=== PATIENT | female | born 1980 | race Caucasian/White ===

== ENCOUNTER → 2016-07-16 | Outpatient (CLI) | payer OTHER ==
[~2016-07-16] MED LIST: HYDR-3812 PO; VALA500T PO
--- OUTSIDE RECORDS SUMMARY | 2016-07-16 17:30 | XMS REPORT | Continuity of Care Document ---
Author Author [facility] Organization [facility] Address Unknown Phone Unavailable Care Team Providers Care Complaint Investigator Name Role Phone ANTONI KIRAN DO PCP Insurance Providers Payer Name Policy Number Subscriber Name Relationship Enter Insurance Name [id number] [employer] 18 Self / Same As Patient Advance Directives Directive Response Recorded Date/Time Advance Directives No 11/03/15 4:09pm Organ Donor No 11/03/15 4:09pm Resuscitation Status Full Code 11/03/15 4:09pm Problems Active Problems Medical Problem Onset Date Status Appendicitis Unknown Acute Medications Current Home Medications Medication Dose Units Route Directions Days/Qty Instructions Start Date Valacyclovir Hcl 500 Mg 1 Oral Daily 30 11/03/15 Hydrocodone/Acetaminophen 1 Each 1 Tab Oral Every 4HRS as needed for 30 11/03/15 Social History Social History Problem Response Recorded Date/Time Alcohol Use Denies Use 11/03/2015 2:45pm Recreational Drug Use No 11/03/2015 2:45pm Recent Foreign Travel No 11/03/2015 3:37pm Recent Infectious Disease Exposure No 11/03/2015 2:45pm Hospitalization with Isolation Denies 11/05/2015 2:49pm Smoking Status Never a Smoker 11/03/2015 2:45pm Do you dip or chew tobacco? No 11/03/2015 12:22pm Query Response Start Date Stop Date Smoking Status Never a Smoker Hospital Discharge Instructions Patient Instructions Physician Instructions New, Converted or Re-Newed RX: RX on Chart Plan of Care/Instructions/FU: 2 weeks [place] Activity as Tolerated: No Discharge Diet: Regular Diet Other Inst to Patient Follow up Appt: Make appointment for 2 week. Instructions: No lifting greater than 10 pounds. No strenuous activity. May shower in 24 hours, no tub bath or soaking. Use incentive spirometer at home as directed. No Smoking Skin/Wound Care: May remove bandages. You need to leave the white strips over incision on they will fall off on their own. Symptoms to Report: Appetite Changes, Extremity Discoloration, Numbness/Tingling, Swelling Increased, Bleeding Excessive, Eyesight Changes, Pain Increased, Urine Color Change, Constipation(Persistent), Fever over 101 degree F, Pain/Pressure in chest, Urinating Difficulty, Cough Up/Vomit Blood, Heart Beat Irreg/Pounding, Pain/Pressure in jaw, Vaginal Bleeding Increase, Cramps in feet or legs, Lightheadedness, Pain/Pressure in shoulder, Diarrhea(Persistent), Memory Changes Suddenly, Questions/Concerns, Weight gain consecutive days, Dizziness/Fainting, Nausea/Vomiting, Shortness of Breath, Weight gain over 2 pounds If questions or concerns contact your physician Or seek help at emergency department. Care Plan Patient Instructions:: 2 weeks [place] Plan of Care Discharge Date 11/05/15 4:00pm Instructions/Education Provided Laparoscopic Appendectomy (DC) Prescriptions See Medication Section Functional Status Query Response Date Recorded Patient Orientation Person Place Time Situation November 05, 2015 2:49pm Allergies, Adverse Reactions, Alerts No known allergies. Immunizations No immunization records. Vital Signs Acute Vital Signs Vital Response Date/Time Temperature (Fahrenheit) 96.8 degrees F (97.6 - 99.5) 11/04/2015 11:37am Temperature (Calculated Celsius) 36.43673 degrees C (36.4 - 37.5) 11/04/2015 10:00am Temperature Source Tympanic 11/04/2015 11:37am Pulse Rate (adult) 77 bpm (60 - 90) 11/04/2015 11:37am Respiratory Rate 20 bpm (12 - 24) 11/04/2015 11:37am O2 Sat by Pulse Oximetry 95 % (88 - 100) 11/04/2015 11:37am Blood Pressure 108/62 mm Hg 11/04/2015 11:37am Blood Pressure Mean 77 mm Hg 11/04/2015 10:00am Pain Pain Intensity 3 11/04/2015 11:34am Height (Feet) 5 feet 11/03/2015 3:37pm Height (Inches) 11.00 inches 11/03/2015 3:37pm Height (Calculated Centimeters) 180.054187 cm 11/03/2015 3:37pm Weight (Pounds) 190 pounds 11/03/2015 3:37pm Weight (Ounces) 0.0 oz 11/03/2015 3:37pm Weight (Calculated Grams) 13843.551 gm 11/03/2015 3:37pm Weight (Calculated Kilograms) 86.041289 kilograms 11/03/2015 3:37pm Calculated BMI 26.5 11/03/2015 3:37pm Results Laboratory Results Test Name Result Units Flags Reference Collection Date/Time Result Date/ Time Comments White Blood Count 9.7 10^3/uL 4.3-11.0 11/03/2015 9:50am 11/03/2015 10: 27am Red Blood Count 4.69 10^6/uL 4.35-5.85 11/03/2015 9:50am 11/03/2015 10: 27am Hemoglobin 14.7 G/DL 11.5-16.0 11/03/2015 9:50am 11/03/2015 10:27am Hematocrit 43 % 35-52 11/03/2015 9:50am 11/03/2015 10:27am Mean Corpuscular Volume 91 FL 80-99 11/03/2015 9:50am 11/03/2015 10: 27am Mean Corpuscular Hemoglobin 31 PG 25-34 11/03/2015 9:50am 11/03/2015 10 :27am Mean Corpuscular Hemoglobin Concent 34 G/DL 32-36 11/03/2015 9:50am 08/2015 10:27am Red Cell Distribution Width 12.1 % 10.0-14.5 11/03/2015 9:50am 2015 10:27am Platelet Count 257 10^3/uL 130-400 11/03/2015 9:50am 11/03/2015 10: 27am Mean Platelet Volume 10.2 FL 7.4-10.4 11/03/2015 9:50am 11/03/2015 10: 27am Neutrophils (%) (Auto) 68 % 42-75 11/03/2015 9:50am 11/03/2015 10:27am Lymphocytes (%) (Auto) 24 % 12-44 11/03/2015 9:50am 11/03/2015 10:27am Monocytes (%) (Auto) 8 % 0-12 11/03/2015 9:50am 11/03/2015 10:27am Eosinophils (%) (Auto) 0 % 0-10 11/03/2015 9:50am 11/03/2015 10:27am Basophils (%) (Auto) 0 % 0-10 11/03/2015 9:50am 11/03/2015 10:27am Neutrophils # (Auto) 6.6 X 10^3 1.8-7.8 11/03/2015 9:50am 11/03/2015 10 :27am Lymphocytes # (Auto) 2.3 X 10^3 1.0-4.0 11/03/2015 9:50am 11/03/2015 10 :27am Monocytes # (Auto) 0.7 X 10^3 0.0-1.0 11/03/2015 9:50am 11/03/2015 10: 27am Eosinophils # (Auto) 0.0 10^3/uL 0.0-0.3 11/03/2015 9:50am 11/03/2015 10:27am Basophils # (Auto) 0.0 10^3/uL 0.0-0.1 11/03/2015 9:50am 11/03/2015 10: 27am Urine Color YELLOW 11/03/2015 9:30am 11/03/2015 10:06am Urine Clarity CLEAR 11/03/2015 9:30am 11/03/2015 10:06am Urine pH 8 5-9 11/03/2015 9:3011/03/2015 10:06am Urine Specific [place] 1.010 * 1.016-1.022 11/03/2015 9:30am 2015 10:06am Urine Protein NEGATIVE NEGATIVE 11/03/2015 9:30am 11/03/2015 10:06am Urine Glucose (UA) NEGATIVE NEGATIVE 11/03/2015 9:3011/03/2015 10: 06am Urine RBC (Auto) NEGATIVE NEGATIVE 11/03/2015 9:30am 11/03/2015 10: 06am Urine Ketones NEGATIVE NEGATIVE 11/03/2015 9:30am 11/03/2015 10:06am Urine Nitrite NEGATIVE NEGATIVE 11/03/2015 9:30am 11/03/2015 10:06am Urine Bilirubin NEGATIVE NEGATIVE 11/03/2015 9:30am 11/03/2015 10: 06am Urine Urobilinogen NORMAL MG/DL NORMAL 11/03/2015 9:30am 11/03/2015 10: 06am Urine Leukocyte Esterase NEGATIVE NEGATIVE 11/03/2015 9:30am 2015 10:06am Urine RBC NONE /HPF 11/03/2015 9:30am 11/03/2015 10:06am Urine WBC NONE /HPF 11/03/2015 9:30am 11/03/2015 10:06am Urine Bacteria TRACE /HPF 11/03/2015 9:30am 11/03/2015 10:06am Urine Squamous Epithelial Cells RARE /HPF 11/03/2015 9:30am 2015 10:06am Urine Crystals NONE /LPF 11/03/2015 9:30am 11/03/2015 10:06am Urine Casts NONE /LPF 11/03/2015 9:30am 11/03/2015 10:06am Urine Mucus NEGATIVE /LPF 11/03/2015 9:30am 11/03/2015 10:06am Urine Culture Indicated NO 11/03/2015 9:30am 11/03/2015 10:06am Sodium Level 139 MMOL/L 135-145 11/03/2015 9:50am 11/03/2015 10:25am Potassium Level 3.5 MMOL/L L 3.6-5.0 11/03/2015 9:50am 11/03/2015 10: 25am Chloride Level 103 MMOL/L 98-107 11/03/2015 9:50am 11/03/2015 10:25am Carbon Dioxide Level 25 MMOL/L 21-32 11/03/2015 9:50am 11/03/2015 10: 25am Anion Gap 11 MMOL/L 5-14 11/03/2015 9:50am 11/03/2015 10:25am Blood Urea Nitrogen 9 MG/DL 7-18 11/03/2015 9:50am 11/03/2015 10:25am Creatinine 0.74 MG/DL 0.60-1.30 11/03/2015 9:50am 11/03/2015 10:25am BUN/Creatinine Ratio 12 11/03/2015 9:50am 11/03/2015 10:25am Estimat Glomerular Filtration Rate > 60 11/03/2015 9:50am 2015 10:25am GFR INTERPRETIVE DATA UNITS FOR ESTIMATED GFR (eGFR): mL/min/1.73 M2 REFERENCE RANGE FOR ESTIMATED GFR (eGFR) eGFR NORMAL eGFR >60 MODERATELY DECREASED eGFR 30-59 SEVERLY DECREASED eGFR 15-29 KIDNEY FAILURE <15 (OR DIALYSIS) Glucose Level 83 MG/DL 70-105 11/03/2015 9:50am 11/03/2015 10:25am Calcium Level 9.1 MG/DL 8.5-10.1 11/03/2015 9:50am 11/03/2015 10:25am Total Bilirubin 0.9 MG/DL 0.1-1.0 11/03/2015 9:50am 11/03/2015 10:25am Alkaline Phosphatase 93 U/L 40-136 11/03/2015 9:50am 11/03/2015 10: 25am Aspartate Amino Transf (AST/SGOT) 24 U/L 5-34 11/03/2015 9:50am 2015 10:25am Alanine Aminotransferase (ALT/SGPT) 9 U/L 0-55 11/03/2015 9:50am 2015 10:25am Total Protein 7.3 G/DL 6.4-8.2 11/03/2015 9:50am 11/03/2015 10:25am Albumin 4.5 G/DL 3.2-4.5 11/03/2015 9:50am 11/03/2015 10:25am Amylase Level 51 U/L 25-125 11/03/2015 9:50am 11/03/2015 10:25am Lipase 19 U/L 8-78 11/03/2015 9:50am 11/03/2015 10:25am Microbiology Results Procedure Source Result Collection Date/Time Result Date/Time MRSA Screen Nasal MRSA not isolated 11/03/2015 11:40am 11/04/2015 2:33pm Procedures Procedure Status Date Provider(s) Laparoscopic appendectomy Completed 11/03/15 JD JAIMES DO Encounters Encounter Location Arrival/Admit Date Discharge/Depart Date Attending Provider Departed [facility] 11/03/15 12:15pm 11/05/15 4:00pm JD JAIMES DO Recent Diagnosis Appendicitis
--- NOTE | 2016-07-16 17:58 | Diagnostic Imaging Report ---
PROCEDURE: US Thyroid. TECHNIQUE: Multiple real-time grayscale images were obtained of the thyroid in various projections. INDICATION: Family history of thyroid cancer COMPARISON: None available FINDINGS: The thyroid gland is within normal limits in size. It maintains a homogeneous echotexture. No discrete cystic or solid nodule is identified. IMPRESSION: Unremarkable examination. No thyroid nodule seen. Dictated by: Dictated on workstation # [id number]
== END ==
LOC: RAD 17:27
PROVIDERS: ATTEND Family Medicine
DX: Z80.8 Family history of malignant neoplasm of other organs or systems (principal)
CPT/HCPCS: 76536

== ENCOUNTER 2020-08-03 11:15 | Observation (INO) | payer OTHER ==
[2020-08-03] VITALS (10 sets, daily range): BP systolic 92–116; BP diastolic 49–82
[~2020-08-03] VITALS: Ht 177 cm; Wt 95.0 kg
[~2020-08-03 11:15] MED LIST changes: +ACHD5005 PO; -HYDR-3812 PO; -VALA500T PO; +VALA500T7 PO
[2020-08-03 11:54] LABS: BILIRUBIN,URINE NEGATIVE (NEGATIVE); CLARITY,URINE CLEAR; COLOR,URINE YELLOW; GLUCOSE, URINE (UA) NEGATIVE (NEGATIVE); KETONES,URINE NEGATIVE (NEGATIVE); LEUKOCYTE ESTERASE ,URINE NEGATIVE (NEGATIVE); NITRITE,URINE NEGATIVE (NEGATIVE); PH,URINE 5.5 (5-9); PROTEIN,URINE NEGATIVE (NEGATIVE)
[2020-08-03 12:01] LABS: BACTERIA,URINE NEGATIVE /HPF
[2020-08-03 12:13] LABS: BASOPHILS % (AUTO) 0 % (0-10); EOSINOPHILS # (AUTO) 0.1 10^3/uL (0.0-0.3); EOSINOPHILS % (AUTO) 1 % (0-10); HEMATOCRIT 31 % (35-52); HEMOGLOBIN 10.1 g/dL (11.5-16.0); LYMPHOCYTES # (AUTO) 1.9 10^3/uL (1.0-4.0); LYMPHOCYTES % (AUTO) 21 % (12-44); MEAN CORPUSCULAR HEMOGLOBIN 31 pg (25-34); MEAN CORPUSCULAR HGB CONC 33 g/dL (32-36); MEAN CORPUSCULAR VOLUME 94 fL (80-99); MEAN PLATELET VOLUME 9.2 fL (9.0-12.2); MONOCYTES # (AUTO) 0.5 10^3/uL (0.0-1.0); MONOCYTES % (AUTO) 6 % (0-12); NEUTROPHILS # (AUTO) 6.5 10^3/uL (1.8-7.8); NEUTROPHILS % (AUTO) 72 % (42-75); PLATELET COUNT 239 10^3/uL (130-400)
[2020-08-03 12:25] LABS: ALBUMIN 3.7 GM/DL (3.2-4.5); CHLORIDE 104 MMOL/L (98-107); POTASSIUM 3.4 MMOL/L (3.6-5.0); SODIUM 135 MMOL/L (135-145)
[2020-08-03 12:27] LABS: CALCIUM 7.9 MG/DL (8.5-10.1)
[2020-08-03 12:28] LABS: GLUCOSE 99 MG/DL (70-105); TOTAL PROTEIN 6.2 GM/DL (6.4-8.2)
[2020-08-03 12:29] LABS: CARBON DIOXIDE 22 MMOL/L (21-32)
[2020-08-03 12:30] LABS: BILIRUBIN,TOTAL 0.3 MG/DL (0.1-1.0)
[2020-08-03 12:31] LABS: ALKALINE PHOSPHATASE 50 U/L (40-136); CREATININE SERUM 0.68 MG/DL (0.60-1.30); GFR ESTIMATED > 60
[2020-08-03 12:32] LABS: BUN/CREATININE RATIO 12
[2020-08-03 12:34] LABS: ALANINE AMINOTRANSFERASE 10 U/L (0-55)
[2020-08-03 13:25] LABS: AMYLASE 38 U/L (25-125)
--- NOTE | 2020-08-03 13:28 | ED Abdominal Pain ---
General Chief Complaint: Abdominal/GI Problems Stated Complaint: ABD PAIN Nursing Triage Note: ARRIVED VIA AMB TO TRIAGE WITH COMPLAINTS OF UMBILICAL PAIN STARTING ON THURSDAY. STATES IT IS HARD FOR HER TO PEE. Sepsis Screen: No Definite Risk Source of Information: Patient Exam Limitations: No Limitations History of Present Illness Date Seen by Provider: Aug 03, 2020 Time Seen by Provider: 13:28 Initial Comments To ER with periumbilical abdominal pain. It began Thursday and she thought she was having her menstrual period. Her last menstrual cycle previous to this was June 25. She is G3, P2 Ab1. Typically she follows with Dr. Eason in [place]. Over the course of the week the pain has progressed. She rates it at 7 out of 10 while resting. She also has some right shoulder pain. No nausea or vomiting. No history of tubal ligation. Does not use any form of control. Timing/Duration: 1 Week Severity/Quality: Moderate Radiation: No Radiation Activities at Onset: None Allergies and Home Medications Allergies Coded Allergies: No Known Drug Allergies (Unverified , 11/03/15) Home Medications Hydrocodone Bit/Acetaminophen 1 Each Tablet, 1 TAB PO Q4H PRN Prescribed by: JD JAIMES on 11/03/15 1325 Valacyclovir HCl 500 Mg Tablet, 1 PO DAILY, (Reported) Patient Home Medication List Home Medication List Reviewed: Yes Review of Systems Review of Systems Constitutional: see HPI EENTM: No Symptoms Reported Respiratory: No Symptoms Reported Cardiovascular: No Symptoms Reported Gastrointestinal: See HPI, Abdominal Pain Genitourinary: No Symptoms Reported Musculoskeletal: no symptoms reported Skin: no symptoms reported Psychiatric/Neurological: No Symptoms Reported Endocrine: No Symptoms Reported Past Eytaqui-Nwxphm-Kohntm Hx Patient Social History 2nd Hand Smoke Exposure: No Recent Infectious Disease Expo: No Seasonal Allergies Seasonal Allergies: No Past Medical History Surgeries: No Respiratory: No Cardiac: No Neurological: No Reproductive Disorders: No Female Reproductive Disorders: Denies Gastrointestinal: No Musculoskeletal: No Endocrine: No Cancer: No Psychosocial: No Integumentary: No Blood Disorders: No Adverse Reaction/Blood Tranf: No Physical Exam Vital Signs Vital Signs - First Documented 08/03/20 11:30 Temp 36.7 Pulse 109 Resp 18 B/P (MAP) 117/81 (93) Pulse Ox 99 O2 Delivery Room Air Capillary Refill : Less Than 3 Seconds Height/Weight/BMI Height: 5'11.00" Weight: 190lbs. 0.0oz. 86.044847io; 30.00 BMI Method:Stated General Appearance: WD/WN, no apparent distress HEENT: PERRL/EOMI, normal ENT inspection Respiratory: no respiratory distress, no accessory muscle use Gastrointestinal: normal bowel sounds, soft, tenderness (Tender to palpation but the pain is tolerable at rest.) Extremities: normal range of motion, non-tender Neurologic/Psychiatric: alert, normal mood/affect, oriented x 3 Skin: normal color, warm/dry Progress/Results/Core Measures Results/Orders Lab Results Laboratory Tests Test 08/03/20 11:35 08/03/20 12:00 Range/Units Urine Color YELLOW Urine Clarity CLEAR Urine pH 5.5 5-9 Urine Specific [place] 1.020 1.016-1.022 Urine Protein NEGATIVE NEGATIVE Urine Glucose (UA) NEGATIVE NEGATIVE Urine Ketones NEGATIVE NEGATIVE Urine Nitrite NEGATIVE NEGATIVE Urine Bilirubin NEGATIVE NEGATIVE Urine Urobilinogen 0.2 < = 1.0 MG/DL Urine Leukocyte Esterase NEGATIVE NEGATIVE Urine RBC (Auto) 3+ H NEGATIVE Urine RBC 10-25 H /HPF Urine WBC NONE /HPF Urine Squamous Epithelial Cells 2-5 /HPF Urine Crystals NONE /LPF Urine Bacteria NEGATIVE /HPF Urine Casts NONE /LPF Urine Mucus NEGATIVE /LPF Urine Culture Indicated NO White Blood Count 9.0 4.3-11.0 10^3/uL Red Blood Count 3.27 L 3.80-5.11 10^6/uL Hemoglobin 10.1 L 11.5-16.0 g/dL Hematocrit 31 L 35-52 % Mean Corpuscular Volume 94 80-99 fL Mean Corpuscular Hemoglobin 31 25-34 pg Mean Corpuscular Hemoglobin Concent 33 32-36 g/dL Red Cell Distribution Width 11.8 10.0-14.5 % Platelet Count 239 130-400 10^3/uL Mean Platelet Volume 9.2 9.0-12.2 fL Immature Granulocyte % (Auto) 0 % Neutrophils (%) (Auto) 72 42-75 % Lymphocytes (%) (Auto) 21 12-44 % Monocytes (%) (Auto) 6 0-12 % Eosinophils (%) (Auto) 1 0-10 % Basophils (%) (Auto) 0 0-10 % Neutrophils # (Auto) 6.5 1.8-7.8 10^3/uL Lymphocytes # (Auto) 1.9 1.0-4.0 10^3/uL Monocytes # (Auto) 0.5 0.0-1.0 10^3/uL Eosinophils # (Auto) 0.1 0.0-0.3 10^3/uL Basophils # (Auto) 0.0 0.0-0.1 10^3/uL Immature Granulocyte # (Auto) 0.0 0.0-0.1 10^3/uL Sodium Level 135 135-145 MMOL/L Potassium Level 3.4 L 3.6-5.0 MMOL/L Chloride Level 104 98-107 MMOL/L Carbon Dioxide Level 22 21-32 MMOL/L Anion Gap 9 5-14 MMOL/L Blood Urea Nitrogen 8 7-18 MG/DL Creatinine 0.68 0.60-1.30 MG/DL Estimat Glomerular Filtration Rate > 60 BUN/Creatinine Ratio 12 Glucose Level 99 70-105 MG/DL Calcium Level 7.9 L 8.5-10.1 MG/DL Corrected Calcium 8.1 L 8.5-10.1 MG/DL Total Bilirubin 0.3 0.1-1.0 MG/DL Aspartate Amino Transf (AST/SGOT) 19 5-34 U/L Alanine Aminotransferase (ALT/SGPT) 10 0-55 U/L Alkaline Phosphatase 50 40-136 U/L Total Protein 6.2 L 6.4-8.2 GM/DL Albumin 3.7 3.2-4.5 GM/DL Amylase Level 38 25-125 U/L Lipase 12 8-78 U/L Human Chorionic Gonadotropin, Quant 555 H <5 MIU/ML My Orders Orders - KELLIE [employer] Us Ob<14 Wks Sngle W/Transvag (08/03/20 13:10) Vital Signs/I&O 08/03/20 11:30 Temp 36.7 Pulse 109 Resp 18 B/P (MAP) 117/81 (93) Pulse Ox 99 O2 Delivery Room Air Blood Pressure Mean: 93 Departure Communication (Admissions) She is hemodynamically stable. Pain is a 7 I will order some fentanyl. I spoke with Dr. Herrmann. We will admit the patient up to women services. Differential includes very early with ruptured corpus luteum cyst versus ruptured ectopic. Impression Primary Impression: Hemoperitoneum Additional Impression: Positive test Disposition: ADMITTED INPATIENT Condition: Stable Admissions Decision to Admit Reason: Admit from ER (General) Decision to Admit/Date: Aug 03, 2020 Departure-Patient Inst. Referrals: ANTONI KIRAN DO (PCP/Family) Primary Care Physician Copy Copies To 1: ANTONI KIRAN PETER J APRN Aug 03, 2020 13:28
[2020-08-03 13:34] LABS: LIPASE 12 U/L (8-78)
--- NOTE | 2020-08-03 14:27 | Diagnostic Imaging Report ---
Indication: Positive test and abdominal pain. The uterus measures 8.2 x 4.0 x 6.2 cm. Endometrium is approximately 18 mm in thickness. Endometrium is heterogeneous. No definite intrauterine is seen. No definite myometrial mass is detected. Ovaries are not visualized. There is an area of heterogeneity posterior to the uterus measuring 8.0 x 3.3 x 9.0 cm. There is also large amount of free fluid present. This area of heterogeneity may represent organized blood products. No other abnormalities are seen. IMPRESSION: 1. No intrauterine is identified. There is thickening and heterogeneity to the endometrium. 2. Masslike echogenicity posterior to uterus surrounded by a large amount of free pelvic fluid. This could represent organized blood products. Hemoperitoneum cannot be excluded. In light of a positive test the possibility of an ectopic with hemoperitoneum cannot be entirely excluded although a discrete adnexal mass is not identified. Dictated by: Dictated on workstation # [id number]
[2020-08-03] MEDS ORDERED: fentaNYL INJECTION 100 MCG/2 ML AMP IVP ONE (15:30)
[2020-08-03] MEDS: LACTATED RINGERS 1,000 ML IV SCH ×2 (15:33→17:32)
--- NOTE | 2020-08-03 17:24 | History & Physical ---
History and Physical Date Seen by Provider: Aug 03, 2020 Time Seen by Provider: 17:16 This patient is a 39-year-old 3 para 2 A1 white female who presented to the emergency department today with increasing abdominal and pelvic pain since Thursday. She reports having vague but progressive pain on Thursday that reached the point today where it is intolerable. She has had some vaginal spotting or bleeding. By her history she would have ovulated about 2 weeks ago. She denies any bowel or bladder complaints plaints or issues other than having some difficulty voiding a couple times this week. Patient denies nausea and denies mastalgia. The patient is on medication for anxiety and depression Evaluation in the emergency department showed a complex cystic mass posterior and to one side of her uterus suspicious for a ruptured cyst versus ectopic versus other etiology. The endometrial stripe was fairly markedly thickened on the ultrasound as well. There was extensive free fluid in the pelvis as well Patient's abdominal and pelvic pain have significantly increased since admission . She has had a dose of fentanyl at 50 mg at only minimally improved her pain. 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 Past surgical history includes procedures for IVF/a D&C for failed /appendectomy Past OB history includes 2 spontaneous pregnancies resulted in live births vaginally and one by IVF which required a D&C for an abnormal Social history the patient is she denies tobacco drug or alcohol use she has no history of STDs Family history is noncontributory Lab work is as follows Laboratory Tests Test 08/03/20 11:35 08/03/20 12:00 Range/Units Urine Color YELLOW Urine Clarity CLEAR Urine pH 5.5 5-9 Urine Specific [place] 1.020 1.016-1.022 Urine Protein NEGATIVE NEGATIVE Urine Glucose (UA) NEGATIVE NEGATIVE Urine Ketones NEGATIVE NEGATIVE Urine Nitrite NEGATIVE NEGATIVE Urine Bilirubin NEGATIVE NEGATIVE Urine Urobilinogen 0.2 < = 1.0 MG/DL Urine Leukocyte Esterase NEGATIVE NEGATIVE Urine RBC (Auto) 3+ H NEGATIVE Urine RBC 10-25 H /HPF Urine WBC NONE /HPF Urine Squamous Epithelial Cells 2-5 /HPF Urine Crystals NONE /LPF Urine Bacteria NEGATIVE /HPF Urine Casts NONE /LPF Urine Mucus NEGATIVE /LPF Urine Culture Indicated NO White Blood Count 9.0 4.3-11.0 10^3/uL Red Blood Count 3.27 L 3.80-5.11 10^6/uL Hemoglobin 10.1 L 11.5-16.0 g/dL Hematocrit 31 L 35-52 % Mean Corpuscular Volume 94 80-99 fL Mean Corpuscular Hemoglobin 31 25-34 pg Mean Corpuscular Hemoglobin Concent 33 32-36 g/dL Red Cell Distribution Width 11.8 10.0-14.5 % Platelet Count 239 130-400 10^3/uL Mean Platelet Volume 9.2 9.0-12.2 fL Immature Granulocyte % (Auto) 0 % Neutrophils (%) (Auto) 72 42-75 % Lymphocytes (%) (Auto) 21 12-44 % Monocytes (%) (Auto) 6 0-12 % Eosinophils (%) (Auto) 1 0-10 % Basophils (%) (Auto) 0 0-10 % Neutrophils # (Auto) 6.5 1.8-7.8 10^3/uL Lymphocytes # (Auto) 1.9 1.0-4.0 10^3/uL Monocytes # (Auto) 0.5 0.0-1.0 10^3/uL Eosinophils # (Auto) 0.1 0.0-0.3 10^3/uL Basophils # (Auto) 0.0 0.0-0.1 10^3/uL Immature Granulocyte # (Auto) 0.0 0.0-0.1 10^3/uL Sodium Level 135 135-145 MMOL/L Potassium Level 3.4 L 3.6-5.0 MMOL/L Chloride Level 104 98-107 MMOL/L Carbon Dioxide Level 22 21-32 MMOL/L Anion Gap 9 5-14 MMOL/L Blood Urea Nitrogen 8 7-18 MG/DL Creatinine 0.68 0.60-1.30 MG/DL Estimat Glomerular Filtration Rate > 60 BUN/Creatinine Ratio 12 Glucose Level 99 70-105 MG/DL Calcium Level 7.9 L 8.5-10.1 MG/DL Corrected Calcium 8.1 L 8.5-10.1 MG/DL Total Bilirubin 0.3 0.1-1.0 MG/DL Aspartate Amino Transf (AST/SGOT) 19 5-34 U/L Alanine Aminotransferase (ALT/SGPT) 10 0-55 U/L Alkaline Phosphatase 50 40-136 U/L Total Protein 6.2 L 6.4-8.2 GM/DL Albumin 3.7 3.2-4.5 GM/DL Amylase Level 38 25-125 U/L Lipase 12 8-78 U/L Human Chorionic Gonadotropin, Quant 555 H <5 MIU/ML Ultrasound results per verbal report from the emergency room physician showed a markedly thickened endometrial stripe, extensive surrounding free fluid and pelvic free fluid, a cystic mass posterior and lateral to the, no discrete intrauterine [place], [place] NAME: [facility] REC#: [id number] PT STATUS: ADM Guillermina : 1980 PHYSICIAN: KELLIE APARICIO APRN ADMIT DATE: 08/03/20/WS Signed Date of Exam:08/03/20 US OB<14 WKS SNGLE W/TRANSVAG Indication: Positive test and abdominal pain. The uterus measures 8.2 x 4.0 x 6.2 cm. Endometrium is approximately 18 mm in thickness. Endometrium is heterogeneous. No definite intrauterine is seen. No definite myometrial mass is detected. Ovaries are not visualized. There is an area of heterogeneity posterior to the uterus measuring 8.0 x 3.3 x 9.0 cm. There is also large amount of free fluid present. This area of heterogeneity may represent organized blood products. No other abnormalities are seen. IMPRESSION: 1. No intrauterine is identified. There is thickening and heterogeneity to the endometrium. 2. Masslike echogenicity posterior to uterus surrounded by a large amount of free pelvic fluid. This could represent organized blood products. Hemoperitoneum cannot be excluded. In light of a positive test the possibility of an ectopic with hemoperitoneum cannot be entirely excluded although a discrete adnexal mass is not identified. Dictated by: Dictated on workstation # [id number] Dict: 08/03/20 1420 Trans: 08/03/20 1555 [facility] [id number] Interpreted by: GENESIS MELARA MD Electronically signed by: GENESIS MELARA MD 08/03/20 155 HEENT exam is normal Neck is supple no lymphadenopathy no thyromegaly Abdomen is soft. Markedly tender on palpation there is no significant rebound but there is voluntary guarding and some rigidity Extremities show no clubbing or cyanosis. There is no Homans' sign. There is no psoas sign and there is no obturator sign Pelvic exam is deferred to the operating room Assessment and plan severe pelvic pain with now progression to an acute abdomen. The physical exam the presentation the ultrasound findings are concerning for a ruptured ectopic but in the differential diagnosis would include a ruptured hemorrhagic corpus luteal cyst that at this point would warrant surgical evaluation due to the patient pain into the extensive amount of free fluid shown on on the ultrasound. I have discussed management options with the patient including observation versus proceeding to laparoscopically evaluation the patient specifically is requesting something definitive at this point as she feels she can no longer tolerate the pain. Toward that end we discussed laparoscopic evaluation with treatment for either ruptured ectopic or ovarian cyst or hemorrhagic corpus luteal cyst with means and measures to try to protect an intrauterine at that should be the case. The patient has a full understanding of the surgical risk complications recovery and follow-up and agrees with those risk and asked that we proceed Acute abdomen possible ruptured ectopic versus hemorrhagic corpus luteal cyst rupture Allergies and Home Medications Allergies Coded Allergies: No Known Drug Allergies (Unverified , 11/03/15) Home Medications Hydrocodone Bit/Acetaminophen 1 Each Tablet, 1 TAB PO Q4H PRN Prescribed by: JD JAIMES on 11/03/15 1325 Valacyclovir HCl 500 Mg Tablet, 1 PO DAILY, (Reported) Patient Home Medication List Home Medication List Reviewed: Yes KYUNG TRINH MD Aug 03, 2020 17:24
[2020-08-03] MEDS ORDERED: ONDANSETRON 4 MG/2 ML (SDV) Z0FRAN IVP PRN ×2 (17:30→20:00)
[2020-08-03] MEDS ORDERED: D5 LR IV SOLUTION 1,000 ML IV SCH ×2 (17:30)
[2020-08-03] MEDS ORDERED: fentaNYL INJECTION 100 MCG/2 ML AMP IVP PRN (17:30)
[2020-08-03] MEDS ORDERED: oxyCODONE/APAP 5/325MG (PERCOCET 5) TABLET PO PRN (17:30)
[2020-08-03] MEDS ORDERED: ceFAZolin INJECTION 1,000 MG in WATER (STERILE) FOR INJECTION 10 ML IV NR (17:30)
[2020-08-03] MEDS ORDERED: OXYC1TAB87 PO (17:33)
[2020-08-03] MEDS ORDERED: DOCU-143 PO (17:33)
[2020-08-03] MEDS ORDERED: IBUP-1780 PO (17:33)
[2020-08-03] MEDS ORDERED: LIDOCAINE PF 2% 5 ML (XYLOCAINE) VIAL ONE (17:35)
[2020-08-03] MEDS ORDERED: fentaNYL INJECTION 100 MCG/2 ML AMP ONE (17:35)
[2020-08-03] MEDS ORDERED: proPOfol 200 MG/20 ML (DIPRIVAN) VIAL IV ONE (17:35)
--- NOTE | 2020-08-03 17:35 | Discharge Inst-Surgical ---
Discharge Inst-Surgical Depart Medication/Instructions New, Converted or Re-Newed RX: RX on Chart Consults/Follow Up Patient Instructions: As directed Orders & Referrals Follow Up Appt: RTC Next Thursday, August 10, 2020 at 9:30 AM for suture removal And as needed increasing pain or abnormal vaginal bleeding Activity: Rest for 24 hours, than as tolerated. Wound Care: May remove Band-Aid tomorrow. Replace as desired. Keep incisions clean and dry. Wash daily with soap and water. Please call in RX to patient pharmacy. Diet: As tolerated May shower or tub bathe as desired. No driving for 24 hours, no alcoholic beverages for 24 hours, and nothing per vagina (no tampons, douching, or intercourse) for 2 weeks. Patient to return to the clinic as soon as possible for: Temperature greater than 101F, Severe Pain, Foul discharge from incision or vagina, Excessive Bleeding (more than a period). Activity Activity as Tolerated: No Diet Discharge Diet: No Restrictions KYUNG TRINH MD Aug 03, 2020 17:35
[2020-08-03] MEDS ORDERED: CATHETER FLUSH 10 ML SYR IV PRN (17:45)
[2020-08-03] MEDS ORDERED: ONDANSETRON 4 MG/2 ML (SDV) Z0FRAN ONE (17:46)
[2020-08-03] MEDS ORDERED: SEVOFLURANE (ULTANE) 15 ML INHAL SOLN ONE ×2 (17:46→19:21)
[2020-08-03] MEDS ORDERED: LIDOCAINE/EPI 1%-1:100,000 (XYLOCAINE) 50 ML ONE (17:53)
[2020-08-03] MEDS ORDERED: LACTATED RINGERS 1,000 ML IV PRN (18:00)
[2020-08-03] MEDS ORDERED: HYDROmorphone 2 MG/ML VIAL (DILAUDID) ONE (19:03)
[2020-08-03] MEDS ORDERED: MEPERIDINE (DEMEROL) INJ 50 MG/ML ONE ×2 (19:03→19:36)
[2020-08-03] MEDS ORDERED: morphine INJ 10 MG/ML 1ML (SYR OR VIAL) ONE (19:04)
[2020-08-03] MEDS ORDERED: PROMETHAZINE INJ 25 MG/ML (PHENERGAN) AMP ONE (19:04)
[2020-08-03] MEDS ORDERED: KETOROLAC 30 MG/ML VIAL ONE (19:09)
[2020-08-03] MEDS ORDERED: PHENYLEPHRINE 100 MCG/ML 10 ML (ANESTHESIA) SYR ONE (19:09)
[2020-08-03] MEDS ORDERED: ROCURONIUM 10 MG/ML 5 ML SYRINGE IV ONE (19:10)
[2020-08-03] MEDS ORDERED: NEOSTIGMINE 3 MG/3 ML VIAL ONE (19:13)
[2020-08-03] MEDS ORDERED: GLYCOPYRROLATE 0.2 MG/ML (ROBINUL) 2 ML VIAL ONE (19:13)
[2020-08-03] MEDS: KETOROLAC 30 MG/ML VIAL IVP NR (19:15)
[2020-08-03] MEDS ORDERED: MEPERIDINE (DEMEROL) INJ 50 MG/ML IVP ONE (20:00)
[2020-08-03] MEDS ORDERED: HYDROmorphone 2 MG/ML VIAL (DILAUDID) IV ONE (20:00)
[2020-08-03] MEDS ORDERED: PROMETHAZINE INJ 25 MG/ML (PHENERGAN) AMP IVP ONE (20:00)
[2020-08-03] MEDS ORDERED: morphine INJ 10 MG/ML 1ML (SYR OR VIAL) IVP ONE (20:00)
[2020-08-04] MEDS ORDERED: KETOROLAC 30 MG/ML VIAL ONE (02:00)
[2020-08-04] MEDS: KETOROLAC 30 MG/ML VIAL IVP NR (02:10)
[2020-08-04 05:00] VITALS: BP 89/53
[2020-08-04] MEDS ORDERED: IBUPROFEN 800 MG (MOTRIN) TAB PO SCH (08:00)
[2020-08-04] MEDS ORDERED: IBUPROFEN 800 MG (MOTRIN) TAB PO ONE (08:14)
[2020-08-04 08:22] VITALS: BP 98/55
--- NOTE | 2020-08-04 08:54 | Progress Note ---
Standard Progress Note Progress Notes/Assess & Plan Date Seen by a Provider: Aug 04, 2020 Time Seen by a Provider: 08:52 Progress/Assessment & Plan This patient is without complaint. She is ambulating, voiding, tolerating oral intake well has good pain control. Vital Signs Date Time Temp Pulse Resp B/P (MAP) Pulse Ox O2 Delivery O2 Flow Rate FiO2 08/04/20 08:22 36.6 87 18 98/55 (69) 100 Room Air 08/04/20 05:00 36.8 96 18 89/53 (65) 97 Room Air 08/03/20 23:56 37.0 91 18 105/54 (71) 97 Room Air 08/03/20 20:35 Room Air 08/03/20 20:35 36.3 20 101/55 (70) 100 Room Air 08/03/20 20:35 36.4 76 18 116/60 (78) 97 Room Air 08/03/20 20:30 Room Air 08/03/20 20:20 20 101/52 (68) 100 Room Air 08/03/20 20:15 Room Air 08/03/20 20:10 20 102/49 (66) 100 Room Air 08/03/20 20:00 Room Air 08/03/20 20:00 20 106/52 (70) 100 Room Air 08/03/20 19:50 20 111/67 (82) 100 OxyMask 3 08/03/20 19:45 OxyMask 6 08/03/20 19:40 36.3 20 92/58 (69) 100 OxyMask 6 08/03/20 19:37 OxyMask 6 08/03/20 19:37 36.3 20 110/82 (91) 100 OxyMask 6 08/03/20 17:15 37.0 90 18 110/71 (84) 100 Room Air 08/03/20 16:22 87 17 138/94 100 Room Air 08/03/20 11:30 36.7 109 18 117/81 (93) 99 Room Air I & O 08/04/20 07:00 Intake Total 1010 ml Output Total 1100 ml Balance -90 ml Vital signs are stable. Patient is afebrile. The abdomen is benign. The surgical incision dressings are clean and dry. Extremities show no clubbing or cyanosis. There is no Homans' sign. Pelvic exam is deferred Assessment and plan postoperative day #1 status post right salpingectomy for ruptured ectopic . Plan is for discharge home with follow-up in clinic Final Diagnosis Ruptured right fallopian tube ectopic KYUNG TRINH MD Aug 04, 2020 08:53
--- NOTE | 2020-08-04 08:55 | Progress Note ---
Standard Progress Note Progress Notes/Assess & Plan Date Seen by a Provider: Aug 04, 2020 Time Seen by a Provider: 08:54 Progress/Assessment & Plan This patient is without complaint. She is ambulating, voiding, tolerating oral intake well has good pain control. Vital Signs Date Time Temp Pulse Resp B/P (MAP) Pulse Ox O2 Delivery O2 Flow Rate FiO2 08/04/20 08:22 36.6 87 18 98/55 (69) 100 Room Air 08/04/20 05:00 36.8 96 18 89/53 (65) 97 Room Air 08/03/20 23:56 37.0 91 18 105/54 (71) 97 Room Air 08/03/20 20:35 Room Air 08/03/20 20:35 36.3 20 101/55 (70) 100 Room Air 08/03/20 20:35 36.4 76 18 116/60 (78) 97 Room Air 08/03/20 20:30 Room Air 08/03/20 20:20 20 101/52 (68) 100 Room Air 08/03/20 20:15 Room Air 08/03/20 20:10 20 102/49 (66) 100 Room Air 08/03/20 20:00 Room Air 08/03/20 20:00 20 106/52 (70) 100 Room Air 08/03/20 19:50 20 111/67 (82) 100 OxyMask 3 08/03/20 19:45 OxyMask 6 08/03/20 19:40 36.3 20 92/58 (69) 100 OxyMask 6 08/03/20 19:37 OxyMask 6 08/03/20 19:37 36.3 20 110/82 (91) 100 OxyMask 6 08/03/20 17:15 37.0 90 18 110/71 (84) 100 Room Air 08/03/20 16:22 87 17 138/94 100 Room Air 08/03/20 11:30 36.7 109 18 117/81 (93) 99 Room Air I & O 08/04/20 07:00 Intake Total 1010 ml Output Total 1100 ml Balance -90 ml Vital signs are stable. Patient is afebrile. The abdomen is benign. The surgical incision dressings are clean and dry. Extremities show no clubbing or cyanosis. There is no Homans' sign. Pelvic exam is deferred Assessment and plan postoperative day #1 status post right salpingectomy for ruptured ectopic . Plan is for discharge home with follow-up in clinic August 04, 2020 This patient is without complaint. She is ambulating, voiding, tolerating oral intake well and has good pain control. Vital Signs Date Time Temp Pulse Resp B/P (MAP) Pulse Ox O2 Delivery O2 Flow Rate FiO2 08/04/20 08:22 36.6 87 18 98/55 (69) 100 Room Air 08/04/20 05:00 36.8 96 18 89/53 (65) 97 Room Air 08/03/20 23:56 37.0 91 18 105/54 (71) 97 Room Air 08/03/20 20:35 Room Air 08/03/20 20:35 36.3 20 101/55 (70) 100 Room Air 08/03/20 20:35 36.4 76 18 116/60 (78) 97 Room Air 08/03/20 20:30 Room Air 08/03/20 20:20 20 101/52 (68) 100 Room Air 08/03/20 20:15 Room Air 08/03/20 20:10 20 102/49 (66) 100 Room Air 08/03/20 20:00 Room Air 08/03/20 20:00 20 106/52 (70) 100 Room Air 08/03/20 19:50 20 111/67 (82) 100 OxyMask 3 08/03/20 19:45 OxyMask 6 08/03/20 19:40 36.3 20 92/58 (69) 100 OxyMask 6 08/03/20 19:37 OxyMask 6 08/03/20 19:37 36.3 20 110/82 (91) 100 OxyMask 6 08/03/20 17:15 37.0 90 18 110/71 (84) 100 Room Air 08/03/20 16:22 87 17 138/94 100 Room Air 08/03/20 11:30 36.7 109 18 117/81 (93) 99 Room Air I & O 08/04/20 07:00 Intake Total 1010 ml Output Total 1100 ml Balance -90 ml Vital signs are stable. Patient is afebrile. Fundus is firm below the umbilicus and nontender. Extremities show no clubbing or cyanosis. There is no Homans' sign. Assessment and plan day #2 status post term spontaneous vaginal delivery at 37 weeks gestation doing well. Plan is for discharge home with follow-up in clinic Final Diagnosis 37-week spontaneous vaginal delivery KYUNG TRINH MD Aug 04, 2020 08:55
--- NOTE | 2020-08-04 09:00 | OPERATIVE REPORT ---
DATE OF SERVICE: 08/03/2020 PREOPERATIVE DIAGNOSIS: Acute abdomen with likely ruptured ectopic and extensive hemoperitoneum. POSTOPERATIVE DIAGNOSES: Acute abdomen with likely ruptured ectopic and extensive hemoperitoneum with large hemoperitoneum with ruptured right fallopian tube . OPERATIVE PROCEDURE: Laparoscopic right salpingectomy. OPERATIVE DESCRIPTION: With the patient in the supine position under satisfactory general anesthesia, she was repositioned in the dorsal lithotomy position in the Yonathan stirru and prepped and draped in the usual for abdominal and vaginal surgery. The urinary bladder was drained with a straight catheter. The patient was brought in low dorsal lithotomy position. A 5 mm incision placed in the patient's left upper quadrant. Veress needle was placed through that incision, correct placement confirmed with water drop test and the abdomen was insufflated with 2.4 liters of carbon dioxide. The Veress needle was removed and a 5 mm laparoscopic Optiview port was placed under direct vision. The pelvis was examined, and the abdomen was examined. There was blood covering most of the bowel and filling the pelvis and there was obvious clot in the pelvis consistent with and suspicious for ruptured ectopic. The abdominal wall was transilluminated. A 12 mm port was placed through an incision of that size in the inferior margin of the umbilicus and a 5 mm port above the symphysis pubis. All three port sites were infiltrated with 0.25% Marcaine with epinephrine prior to incision. A 1 cm aspirating instrument was passed through the umbilical port and about 700 mL of blood and clot was evacuated from the pelvis. The pelvis was then irrigated and examined. There was a large complex appearing mass involving the right fallopian tube consistent with a ruptured right ectopic. The fallopian tube was barely identifiable, Except for the proximal one third of the fallopian tube which appeared normal. The right ovary appeared normal as did the left fallopian tube and ovary and the uterus. Laparoscope was rotated. The upper abdomen examined. There was a large amount of blood above the dome of the liver. Laparoscope was brought back to the pelvis. The Endo-JESSICA was loaded AND the right fallopian tube was grasped and elevated. The mesosalpinx was clamped with an Endo-JESSICA and divided close to the ovary. A second firing of another load of the Endo-JESSICA across the mesosalpinx brought it down to where there was a small portion of salpinx still connected which contained the ectopic. This portion of fallopian tube was cauterized and then divided sharply. The specimen consisting of the distal two-thirds of the fallopian tube including the ectopic was placed in an Endobag and brought out through the umbilical incision. The pelvis was now copiously irrigated and aspirated cleaning up all of the free blood and clot. The patient was now placed into Trendelenburg allowing for better visualization of the pelvis. There was no abnormal remaining pathology remaining in the pelvis. There was some oozing along the peritoneal edges on the right fallopian tube where the salpingectomy had been performed. This was touched with electrocautery to effect complete hemostasis. Both ovaries looked normal. The left fallopian tube looked normal. The uterus was normal but appeared somewhat mottled which would be suspicious for adenomyosis. There was no blood clot or debris remaining in the pelvis. Laparoscope was rotated. There was a large amount of blood above the liver dome. This was aspirated out and then the area was irrigated and aspirated a couple more times removing the bulk of that blood. The patient was now brought out of Trendelenburg. There was no significant amount of blood remaining inside. At this point, the laparoscopic portion of the procedure was halted. The operative instruments were removed under direct vision, as were the ports. The abdomen was evacuated of insufflating gas in the process of removing the ports. The skin incisions were closed with interrupted sutures of 3-0 nylon, the fascia at the umbilical port site was closed with [id number] suture of 2-0 Vicryl. Sponge and needle counts were correct on completion of procedure. Estimated blood loss for the procedure was around 1000 mL and this was almost exclusively the free blood that was the result of the ruptured ectopic. The patient was now uneventfully awakened from her general anesthesia and transferred to recovery room in stable condition with plans for discharge home PAR. Job ID: [id number] DocumentID: [id number] Dictated Date: 08/03/2020 19:22:25 [employer] Operations Manager Date: 08/04/2020 03:39:15 Dictated By: KYUNG TRINH MD [facility]
--- NOTE | 2020-08-04 16:44 | Anesthesia-General Post-Op ---
General Patient Condition Mental Status/LOC: Same as Preop Cardiovascular: Satisfactory Nausea/Vomiting: Absent Respiratory: Satisfactory Pain: Controlled Complications: Absent Post Op Complications Complications None Follow Up Care/Instructions Patient Instructions None needed. Anesthesia/Patient Condition Patient Condition Patient is doing well, no complaints, stable vital signs, no apparent adverse anesthesia problems. No complications reported per nursing. TRINITY LEES CRNA Aug 04, 2020 16:44
== END 2020-08-04 09:12 | disposition home or self-care (01) ==
LOC: EDUNIT# 11:15 → ER 11:17 → WS 15:10
PROVIDERS: ADMIT Obstetrics & Gynecology; ATTEND Obstetrics & Gynecology
DX: O00.101 Right tubal pregnancy without intrauterine pregnancy (principal); K66.1 Hemoperitoneum; F41.9 Anxiety disorder, unspecified; F32.9 Major depressive disorder, single episode, unspecified; Z79.899 Other long term (current) drug therapy; Z20.822 Contact with and (suspected) exposure to COVID-19
CPT/HCPCS: 59151; 76801; 76817; 80053; 81000; 82150; 83690; 84702; 84703; 85025; 86850; 86900; 86901; 88305; 96361; 96374; 99284; U0002; 36415; 87635

== ENCOUNTER 2021-03-02 19:46 | Emergency (ER) | payer OTHER ==
[~2021-03-02] VITALS: Ht 177 cm; Wt 97.2 kg
[~2021-03-02 19:46] MED LIST changes: +DOCU-143 PO; +IBUP-1780 PO; +OXYC1TAB87 PO
[2021-03-02] MEDS ORDERED: ASPIRIN 81 MG CHEW (CHILDREN'S ASA) PO ONE (20:00)
--- NOTE | 2021-03-02 20:09 | ED Cardiac General ---
History of Present Illness General Chief Complaint: Chest Pain Stated Complaint: IRREGULAR HR/CHEST TIGHTNESS Source: patient History of Present Illness Date Seen by Provider: Mar 02, 2021 Time Seen by Provider: 19:49 Initial Comments PT ARRIVES VIA POV STATES ABOUT AN HOUR AGO, SHE WAS DRIVING HOME FROM A SOCCER GAME IN [place], ( FAMILY WAS IN CAR WITH HER) AND SHE SUDDENLY BEGAN TO HAVE SENSATION OF IRREGULAR HEART BEAT--STATES "MY PULSE WAS NOT EVEN" FELT A LITTLE SHORT OF BREATH WITH IT AND A LITTLE LIGHT HEADED, BUT NOT TO THE POINT THAT SHE FELT LIKE SHE MIGHT PASS OUT SYMPTOMS WERE NOT BAD ENOUGH THAT SHE FELT LIKE SHE SHOULD STOP DRIVING SYMPTOMS RESOLVED ABOUT 15 MINUTES AGO, THEY WERE GETTING BACK INTO TOWN HERE NO SWEATS NO NAUSEA/VOMITING NO CHEST PAIN--BUT STATES THAT SHE STARTED AN "INTENSE" EXERCISE PROGRAM ON THURSDAY, FOCUSING ON ARMS AND UPPER BODY AND HER CHEST AND UPPER ARM MUSCLES HAVE FELT TIGHT ALL WEEK SINCE STARTING THAT--THOSE SYMPTOMS ARE NOT ANY WORSE TODAY. NO UNUSUAL ACTIVITY TODAY HAS BEEN AT A SOCCER GAME IN [place] THIS AFTERNOON--STATES 'IT WAS A STRESSFUL SOCCER GAME" ADDITIONALLY SHE STATES SHE HAS HAD "ALOT" OF CAFFEINE TODAY--AND WAS DRINKING CAFFEINE UNTIL AROUND 1700 TODAY STATES "I'M AN ANXIETY PERSON, AND I DON'T FEEL LIKE IT WAS A PANIC ATTACK" STATES HER BP WAS 113/75 WITH PULSE OF 65 BY THE TIME SHE WAS ABLE TO CHECK IT STATES SHE HAD A SIMILAR EPISODE A LONG TIME AGO, BUT NEVER SOUGHT CARE FOR IT, AND IT WENT AWAY ON IT'S OWN PT HAD ROUTINE EXAM WITH DR. KIRAN 2 WEEKS AGO, NO CHANGES IN MEDICATION--TAKES PROZAC FOR ANXIETY, NO OTHER PRESCRIPTION MEDICATIONS SHE TAKES OVER THE COUNTER PLAIN CLARITIN FOR ALLERGIES AND A MULTIVITAMIN LMP 3 WEEKS AGO, NORMAL. NO CONTROL PCP: DR. KIRAN Allergies and Home Medications Allergies Coded Allergies: No Known Drug Allergies (Unverified , 11/03/15) Patient Home Medication List Docusate Sodium (Colace) 100 Mg Capsule, 100 MG PO BID Prescribed by: KYUNG VALDEZ on 08/03/201732 Ibuprofen (Ibuprofen) 800 Mg Tablet, 800 MG PO Q6H PRN for PAIN Prescribed by: KYUNG VALDEZ on 08/03/201732 Oxycodone HCl/Acetaminophen (Percocet 5-325 mg Tablet) 1 Each Tablet, 1 TAB PO Q4H Prescribed by: KYUNG VALDEZ on 08/03/20 1733 Valacyclovir HCl (Valacyclovir) 500 Mg Tablet, 1 PO DAILY, (Reported) Entered as Reported by: BRIGIDO DÍAZ on 11/03/15 1025 Review of Systems Review of Systems Constitutional: see HPI; No diaphoresis; dizziness EENTM: No Symptoms Reported Respiratory: See HPI, Shortness of Air Cardiovascular: See HPI; Denies Edema; Irregular Heart Rate, Lightheadedness, Palpitations; Denies Syncope Gastrointestinal: No Symptoms Reported; Denies Abdominal Pain, Denies Nausea, Denies Vomiting Genitourinary: No Symptoms Reported Musculoskeletal: see HPI Skin: no symptoms reported Psychiatric/Neurological: No Symptoms Reported Endocrine: No Symptoms Reported Hematologic/Lymphatic: No Symptoms Reported Past [id number] Hx Patient Social History Tobacco Use?: No Substance use?: No Alcohol Use?: Yes Alcohol Frequency: Once in a while Seasonal Allergies Seasonal Allergies: Yes Past Medical History Surgery/Hospitalization HX: [facility] IN-VITRO FERTILIZATION RIGHT SALPINGECTOMY FOR ECTOPIC 07/[address] TRINH APPENDECTOMY 10/[address] JAIMES Surgeries: Yes Appendectomy Respiratory: No Currently Using CPAP: No Currently Using BIPAP: No Cardiac: No Neurological: No Reproductive Disorders: Yes (INFERTILITY ISSUES; RIGHT ECTOPIC ) Female Reproductive Disorders: Denies Genitourinary: No Gastrointestinal: No Musculoskeletal: No Endocrine: No HEENT: No Cancer: No Psychosocial: Yes Anxiety Integumentary: No Blood Disorders: No Adverse Reaction/Blood Tranf: No Physical Exam Vital Signs Capillary Refill : Height, Weight, BMI Height: 5'11.00" Weight: 190lbs. 0.0oz. 86.837265ad; 30.32 BMI Method:Stated General Appearance: No Apparent Distress, WD/WN Neck: Normal Inspection; No JVD Respiratory: Normal Breath Sounds, No Accessory Muscle Use, No Respiratory Distress Cardiovascular: Regular Rate, Rhythm, No Edema, No JVD, No Murmur, Normal Peripheral Pulses Gastrointestinal: Non Tender, Soft Extremity: Normal Inspection, No Calf Tenderness, No Pedal Edema Neurologic/Psychiatric: Alert, Oriented x3, No Motor/Sensory Deficits, Normal Mood/Affect, education research analyst II-XII Norm as Tested Skin: Normal Color, Warm/Dry; No Rash Progress/Results/Core Measures Results/Orders Lab Results Laboratory Tests Test 03/02/21 19:59 03/02/21 20:05 Range/Units Urine Color YELLOW Urine Clarity CLEAR Urine pH 6.0 5-9 Urine Specific [place] <=1.005 1.016-1.022 Urine Protein NEGATIVE NEGATIVE Urine Glucose (UA) NEGATIVE NEGATIVE Urine Ketones NEGATIVE NEGATIVE Urine Nitrite NEGATIVE NEGATIVE Urine Bilirubin NEGATIVE NEGATIVE Urine Urobilinogen 0.2 < = 1.0 MG/DL Urine Leukocyte Esterase NEGATIVE NEGATIVE Urine RBC (Auto) NEGATIVE NEGATIVE Urine RBC NONE /HPF Urine WBC RARE /HPF Urine Crystals PRESENT H /LPF Urine Amorphous Sediment RARE AYSHA URATES H /LPF Urine Bacteria TRACE /HPF Urine Casts NONE /LPF Urine Mucus NEGATIVE /LPF Urine Culture Indicated NO Urine Opiates Screen NEGATIVE NEGATIVE Urine Oxycodone Screen NEGATIVE NEGATIVE Urine Methadone Screen NEGATIVE NEGATIVE Urine Propoxyphene Screen NEGATIVE NEGATIVE Urine Barbiturates Screen NEGATIVE NEGATIVE Ur Tricyclic Antidepressants Screen NEGATIVE NEGATIVE Urine Phencyclidine Screen NEGATIVE NEGATIVE Urine Amphetamines Screen NEGATIVE NEGATIVE Urine Methamphetamines Screen NEGATIVE NEGATIVE Urine Benzodiazepines Screen NEGATIVE NEGATIVE Urine Cocaine Screen NEGATIVE NEGATIVE Urine Cannabinoids Screen NEGATIVE NEGATIVE White Blood Count 8.1 4.3-11.0 10^3/uL Red Blood Count 4.53 3.80-5.11 10^6/uL Hemoglobin 13.4 11.5-16.0 g/dL Hematocrit 42 35-52 % Mean Corpuscular Volume 92 80-99 fL Mean Corpuscular Hemoglobin 30 25-34 pg Mean Corpuscular Hemoglobin Concent 32 32-36 g/dL Red Cell Distribution Width 13.3 10.0-14.5 % Platelet Count 282 130-400 10^3/uL Mean Platelet Volume 9.7 9.0-12.2 fL Immature Granulocyte % (Auto) 0 % Neutrophils (%) (Auto) 50 42-75 % Lymphocytes (%) (Auto) 40 12-44 % Monocytes (%) (Auto) 8 0-12 % Eosinophils (%) (Auto) 2 0-10 % Basophils (%) (Auto) 1 0-10 % Neutrophils # (Auto) 4.1 1.8-7.8 10^3/uL Lymphocytes # (Auto) 3.2 1.0-4.0 10^3/uL Monocytes # (Auto) 0.6 0.0-1.0 10^3/uL Eosinophils # (Auto) 0.2 0.0-0.3 10^3/uL Basophils # (Auto) 0.0 0.0-0.1 10^3/uL Immature Granulocyte # (Auto) 0.0 0.0-0.1 10^3/uL Prothrombin Time 12.8 12.2-14.7 SEC INR Comment 0.9 0.8-1.4 Activated Partial Thromboplast Time 35 24-35 SEC Sodium Level 139 135-145 MMOL/L Potassium Level 3.4 L 3.6-5.0 MMOL/L Chloride Level 105 98-107 MMOL/L Carbon Dioxide Level 22 21-32 MMOL/L Anion Gap 12 5-14 MMOL/L Blood Urea Nitrogen 16 7-18 MG/DL Creatinine 0.78 0.60-1.30 MG/DL Estimat Glomerular Filtration Rate 82 BUN/Creatinine Ratio 21 Glucose Level 88 70-105 MG/DL Calcium Level 9.3 8.5-10.1 MG/DL Corrected Calcium 9.3 8.5-10.1 MG/DL Magnesium Level 1.8 1.6-2.4 MG/DL Total Bilirubin 0.2 0.1-1.0 MG/DL Aspartate Amino Transf (AST/SGOT) 24 5-34 U/L Alanine Aminotransferase (ALT/SGPT) 13 0-55 U/L Alkaline Phosphatase 83 40-136 U/L Total Creatine Kinase 217 H 29-168 U/L Creatine Kinase MB 2.5 <6.6 NG/ML Myoglobin 29.5 10.0-92.0 NG/ML Troponin I < 0.028 <0.028 NG/ML B-Type Natriuretic Peptide 14.4 <100.0 PG/ML Total Protein 7.3 6.4-8.2 GM/DL Albumin 4.0 3.2-4.5 GM/DL TSH [place] Testing 1.91 0.35-4.94 UIU/ML Serum Test, Qualitative NEGATIVE NEGATIVE My Orders Orders - MERARI LOPEZ DO Ed Iv/Invasive Line Start (03/02/21 19:49) Ekg Tracing (03/02/21 19:49) Monitor-Rhythm Ecg Trace Only (03/02/21 19:49) BNP (03/02/21 19:49) Cbc With Automated Diff (03/02/21 19:49) Comprehensive Metabolic Panel (03/02/21 19:49) Creatine Kinase (03/02/21 19:49) Creatine Kinase Mb (03/02/21 19:49) Drug Screen Stat (Urine) (03/02/21 19:49) Hcg,Qualitative Serum (03/02/21 19:49) Magnesium (03/02/21 19:49) Protime With Inr (03/02/21 19:49) Partial Thromboplastin Time (03/02/21 19:49) Thyroid Analyzer (03/02/21 19:49) Ua Culture If Indicated (03/02/21 19:49) Myoglobin Serum (03/02/21 19:49) Troponin I (03/02/21 19:49) Chest 1 View, Ap/Pa Only (03/02/21 19:49) Aspirin Chewable Tablet (Baby Aspirin Ch (03/02/21 20:00) Medications Given in ED Current Medications Medications Dose Ordered Sig/Yumiko Route Start Time Stop Time Status Last Admin Dose Admin Aspirin 324 mg ONCE ONCE PO 03/02/21 20:00 03/02/21 20:01 DC 03/02/21 19:58 324 MG Progress Progress Note : Progress Note NO SYMPTOMS OR ARRHYTHMIAS OR ABNORMAL VITALS DURING ENTIRE ER STAY Initial ECG Impression Date: Mar 02, 2021 Initial ECG Impression Time: 19:49 Initial ECG Rate: 66 Initial ECG Rhythm: Normal Sinus (IVCD) Initial ECG Impression: Nonspecific Changes Initial ECG Comparisson: No Previous ECG Available Diagnostic Imaging Comments CXR--PER RADIOLOGIST REPORT AT 2117 FINDINGS: The lungs are clear. There is no failure, effusion or pneumothorax. IMPRESSION: No acute appearing abnormality. Reviewed: Reviewed by Me Departure Impression Primary Impression: Palpitations Disposition: HOME, SELF-CARE Condition: Stable Departure-Patient Inst. Decision time for Depature: 21:19 Referrals: ANTONI KIRAN DO (PCP/Family) Primary Care Physician Patient Instructions: Palpitations (DC) Add. Discharge Instructions: NO CAFFEINE OR OTHER STIMULANTS, INCLUDING NO DECONGESTANTS CONTINUE YOUR REGULAR MEDICATIONS PRESCRIBED FOLLOW UP WITH DR. KIRAN IN A FEW DAYS FOR FURTHER CARE--CALL ON Thursday TO SCHEDULE APPOINTMENT CALL Thursday TO SCHEDULE HOLTER MONITOR RETURN TO ER IF SYMPTOMS RETURN All discharge instructions reviewed with patient and/or family. Voiced understanding. MERARI LOPEZ DO Mar 02, 2021 20:09
[2021-03-02 20:10] LABS: BILIRUBIN,URINE NEGATIVE (NEGATIVE); CLARITY,URINE CLEAR; COLOR,URINE YELLOW; GLUCOSE, URINE (UA) NEGATIVE (NEGATIVE); KETONES,URINE NEGATIVE (NEGATIVE); LEUKOCYTE ESTERASE ,URINE NEGATIVE (NEGATIVE); NITRITE,URINE NEGATIVE (NEGATIVE); PROTEIN,URINE NEGATIVE (NEGATIVE)
[2021-03-02 20:24] LABS: AMORPHOUS SEDIMENT,UR RARE AMOR URATES /LPF; BACTERIA,URINE TRACE /HPF; WBC,URINE RARE /HPF
[2021-03-02 20:26] LABS: AMPHETAMINE SCREEN, URINE NEGATIVE (NEGATIVE); BARBITURATE SCREEN URINE NEGATIVE (NEGATIVE); BENZODIAZEPINES SCREEN URINE NEGATIVE (NEGATIVE); CANNABINOID SCREEN, URINE NEGATIVE (NEGATIVE); COCAINE SCREEN URINE NEGATIVE (NEGATIVE); METHADONE STAT NEGATIVE (NEGATIVE); METHAMPHETAMINE SCREEN URINE S NEGATIVE (NEGATIVE); OPIATE SCREEN URINE NEGATIVE (NEGATIVE); OXYCODONE STAT NEGATIVE (NEGATIVE); PROPOXYPHENE STAT NEGATIVE (NEGATIVE); TRICYCLIC ANTIDEPRESSANTS SCRE NEGATIVE (NEGATIVE)
[2021-03-02 20:32] LABS: BASOPHILS % (AUTO) 1 % (0-10); EOSINOPHILS # (AUTO) 0.2 10^3/uL (0.0-0.3); EOSINOPHILS % (AUTO) 2 % (0-10); HEMATOCRIT 42 % (35-52); HEMOGLOBIN 13.4 g/dL (11.5-16.0); LYMPHOCYTES # (AUTO) 3.2 10^3/uL (1.0-4.0); LYMPHOCYTES % (AUTO) 40 % (12-44); MEAN CORPUSCULAR HEMOGLOBIN 30 pg (25-34); MEAN CORPUSCULAR HGB CONC 32 g/dL (32-36); MEAN CORPUSCULAR VOLUME 92 fL (80-99); MEAN PLATELET VOLUME 9.7 fL (9.0-12.2); MONOCYTES # (AUTO) 0.6 10^3/uL (0.0-1.0); MONOCYTES % (AUTO) 8 % (0-12); NEUTROPHILS # (AUTO) 4.1 10^3/uL (1.8-7.8); NEUTROPHILS % (AUTO) 50 % (42-75); PLATELET COUNT 282 10^3/uL (130-400); WHITE BLOOD COUNT 8.1 10^3/uL (4.3-11.0)
[2021-03-02 20:44] LABS: INR 0.9 (0.8-1.4); PROTHROMBIN TIME PATIENT 12.8 SEC (12.2-14.7)
[2021-03-02 21:10] LABS: ALANINE AMINOTRANSFERASE 13 U/L (0-55); ALKALINE PHOSPHATASE 83 U/L (40-136); BILIRUBIN,TOTAL 0.2 MG/DL (0.1-1.0); BUN/CREATININE RATIO 21; CALCIUM 9.3 MG/DL (8.5-10.1); CARBON DIOXIDE 22 MMOL/L (21-32); CHLORIDE 105 MMOL/L (98-107); CREATINE KINASE 217 U/L (29-168); CREATINE KINASE MB 2.5 NG/ML (<6.6); CREATININE SERUM 0.78 MG/DL (0.60-1.30); GFR ESTIMATED 82; GLUCOSE 88 MG/DL (70-105); MAGNESIUM 1.8 MG/DL (1.6-2.4); POTASSIUM 3.4 MMOL/L (3.6-5.0); SODIUM 139 MMOL/L (135-145); TOTAL PROTEIN 7.3 GM/DL (6.4-8.2); TSH (THYROID ANALYZER) 1.91 UIU/ML (0.35-4.94)
--- NOTE | 2021-03-02 21:10 | Diagnostic Imaging Report ---
INDICATION: Palpitations. FINDINGS: The lungs are clear. There is no failure, effusion or pneumothorax. IMPRESSION: No acute appearing abnormality. Dictated by: Dictated on workstation # [id number]
[2021-03-03 05:35] VITALS: BP 131/86
== END 2021-03-02 21:40 | disposition home or self-care (01) ==
LOC: EDUNIT# 19:46 → ER 19:48
DX: R00.2 Palpitations (principal); F41.9 Anxiety disorder, unspecified; Z79.899 Other long term (current) drug therapy
CPT/HCPCS: 36415; 71045; 80053; 80306; 81000; 82550; 82553; 83735; 83874; 83880; 84443; 84484; 84703; 85025; 85610; 85730; 93005; 93041

== ENCOUNTER → 2021-03-07 | Outpatient (CLI) | payer OTHER | LOC: CARD 09:47 | PROVIDERS: ATTEND Family Medicine | DX: I49.9 Cardiac arrhythmia, unspecified (principal) | CPT/HCPCS: 93225; 93226 ==